=== PATIENT | male | born 1955 | race Caucasian/White ===

== ENCOUNTER 2020-03-18 07:56 | Day surgery (SDC) | payer MEDICARE, BC ==
[~2020-03-18] VITALS: Ht 172.7 cm; Wt 65.0 kg
[2020-03-18] MEDS ORDERED: PLEASE ENTER HEIGHT AND WEIGHT MC SCH (09:00)
[2020-03-18] MEDS ORDERED: SODIUM CHLORIDE 0.9% 1,000 ML IV SCH (09:00)
[2020-03-18 10:04] VITALS: BP 144/91
[2020-03-18] MEDS ORDERED: METO25TA35 PO (10:13)
[2020-03-18] MEDS ORDERED: CETI10CA PO (10:13)
[2020-03-18] MEDS ORDERED: MONT10TA11 PO (10:13)
[2020-03-18] MEDS ORDERED: FAMO20TA7 PO (10:13)
[2020-03-18 10:56] LABS: ANION GAP 6 mmol/L (5-15); CHLORIDE 107 mmol/L (98-107); CREATININE 0.84 mg/dL (0.7-1.3)
[2020-03-18 11:09] LABS: BASOPHILS % (AUTO) 2 % (0-1); EOSINOPHILS % (AUTO) 3 % (1-7); LYMPHOCYTES % (AUTO) 20 % (22-44); MEAN CORPUSCULAR HEMOGLOBIN 34.3 pg (27.5-34.5); MEAN PLATELET VOLUME 9.4 fL (7.4-10.4); MONOCYTES % (AUTO) 15 % (2-9); NEUTROPHILS % (AUTO) 61 % (42-75); PLATELET COUNT 151 x10^3/uL (130-400); RED BLOOD COUNT 4.66 x10^6/uL (4.38-5.82); RED CELL DISTRIBUTION WIDTH 14.4 % (9.4-14.8)
[2020-03-18] MEDS ORDERED: FENTANYL PF 100 MCG/2ML ONE (11:37)
[2020-03-18] MEDS ORDERED: LIDOCAINE 2%, 20ML ONE (11:37)
[2020-03-18] MEDS ORDERED: MIDAZOLAM 1 MG/ML, 2ML ONE (11:37)
[2020-03-18] MEDS ORDERED: ISOPROTERENOL 0.2MG/ML, 5ML ONE (11:37)
[2020-03-18 11:51] LABS: MD NO
[2020-03-18] MEDS ORDERED: MONTELUKAST 10 MG TABLET PO SCH (21:00)
[2020-03-19] MEDS ORDERED: TEMPLATE NON-FORMULARY MED. (Cetirizine Hcl** (Zyrtec**) 10 MG) PO SCH (09:00)
[2020-03-19] MEDS ORDERED: FAMOTIDINE 20 MG TABLET PO SCH (09:00)
== END 2020-03-18 16:53 | disposition home or self-care (01) ==
LOC: CACL 07:56
PROVIDERS: ATTEND Internal Medicine Cardiovascular Disease
DX: I47.1 Supraventricular tachycardia (principal); J44.9 Chronic obstructive pulmonary disease, unspecified; Z79.899 Other long term (current) drug therapy; Z72.89 Other problems related to lifestyle; Z72.0 Tobacco use
CPT/HCPCS: 36415; 71046; 80048; 85025; 93613; 93623; 93653; 99156; 99157; C1730; C1894; C2630; J2250; J3010